=== PATIENT | female | born 1930 | race Caucasian/White ===

== ENCOUNTER 2016-10-25 13:26 | Emergency (ER) | payer OTHER ==
[~2016-10-25] VITALS: Ht 160 cm; Wt 74.5 kg
[~2016-10-25 13:26] MED LIST: ASPIR-LOW81 M1 PO; CENTRUM SILVER1 EACH PO; DIOVAN HCT 11 TABLET PO; DIOVAN HCT 81 TABLET PO; LUMIGAN 0.50 DROP/2.; METFORMIN HCL500 MG PO; METOPROLOL SUCC25 MG PO; SULFA
[2016-10-25] MEDS ORDERED: LATANOPROST2.5 ML BOTH EYES (14:25)
[2016-10-25] MEDS ORDERED: LOSARTAN POTAS100 MG PO (14:25)
[2016-10-25 14:58] LABS: HEMATOCRIT 32.7 % (36.0-46.0); MCH 30.8 PG (29.0-34.0); MCV 93.2 FL (83-99); MEAN PLAT.VOLUME 9.4 uM^3 (9.5-12.4); PLATELET COUNT 180 K/uL (156-360); RBC DIS.WIDTH-CV 12.6 % (11.8-14.6); RED BLOOD COUNT 3.51 M/uL (3.80-5.20); WHITE BLOOD COUNT 11.6 K/uL (4.1-10.2)
[2016-10-25 15:05] LABS: CHLORIDE 106 mEq/L (99-109); POTASSIUM 4.2 mEq/L (3.7-5.4)
[2016-10-25 15:06] LABS: SODIUM 140 mEq/L (136-147)
[2016-10-25 15:07] LABS: GLUCOSE 95 mg/dL (70-99)
[2016-10-25 15:09] LABS: ANION GAP 9 MEQ/L (2-14)
[2016-10-25 15:11] LABS: GFR ESTIMATE (CALCULATED) > 59 mL/min/
[2016-10-25 15:12] LABS: UREA NITROGEN (BUN) 21 mg/dL (9-23)
[2016-10-25] MEDS ORDERED: HYDROCHLOROTHIA25 MG PO (16:35)
[2016-10-25 18:07] VITALS: BP 142/48
== END 2016-10-25 18:08 | disposition home or self-care (01) ==
LOC: EME → EDBD 13:26 → EME 18:08
PROVIDERS: Emergency Medicine
PROC: 0HQ1XZZ Repair Face Skin, External Approach (ICD-10-PCS; principal; 2016-10-25)
PROC: 2W39X1Z Immobilization of Left Upper Extremity using Splint (ICD-10-PCS; 2016-10-25)
PROC: 3E0234Z Introduction of Serum, Toxoid and Vaccine into Muscle, Percutaneous Approach (ICD-10-PCS; 2016-10-25)
DX: S09.8XXA Other specified injuries of head, initial encounter (principal); S01.112A Laceration without foreign body of left eyelid and periocular area, initial encounter; S42.415A Nondisplaced simple supracondylar fracture without intercondylar fracture of left humerus, initial encounter for closed fracture; W01.0XXA Fall on same level from slipping, tripping and stumbling without subsequent striking against object, initial encounter; Y92.009 Unspecified place in unspecified non-institutional (private) residence as the place of occurrence of the external cause; R60.0 Localized edema; Z23 Encounter for immunization; I10 Essential (primary) hypertension
CPT/HCPCS: 70450; 71020; 73080; 80048; 85027; 99281; 99285

== ENCOUNTER 2016-10-26 09:58 | Emergency (ER) | payer OTHER ==
[~2016-10-26] VITALS: Ht 160 cm; Wt 74.5 kg
[~2016-10-26 09:58] MED LIST changes: +HYDROCHLOROTHIA25 MG PO; +LATANOPROST2.5 ML BOTH EYES; +LOSARTAN POTAS100 MG PO
[2016-10-26 12:47] VITALS: BP 177/78
== END 2016-10-26 12:50 | disposition home or self-care (01) ==
LOC: EME 09:58
DX: S92.912A Unspecified fracture of left toe(s), initial encounter for closed fracture (principal); M79.604 Pain in right leg; M79.605 Pain in left leg; W19.XXXD Unspecified fall, subsequent encounter; E11.9 Type 2 diabetes mellitus without complications; I10 Essential (primary) hypertension; K21.9 Gastro-esophageal reflux disease without esophagitis; Z87.440 Personal history of urinary (tract) infections
CPT/HCPCS: 73502; 73630; 99281; 99284

== ENCOUNTER 2017-10-25 18:02 | Inpatient (IN) | payer OTHER ==
[~2017-10-25] VITALS: Ht 160 cm; Wt 71.0 kg
[2017-10-25 18:53] LABS: HEMATOCRIT 32.1 % (36.0-46.0); MCH 31.6 PG (29.0-34.0); MCHC 34.3 G/DL (30.0-36.0); MCV 92.2 FL (83-99); PLATELET COUNT 349 K/uL (156-360); RBC DIS.WIDTH-CV 12.3 % (11.8-14.6); RBC DIS.WIDTH-SD 41.3 % (39-53); RED BLOOD COUNT 3.48 M/uL (3.80-5.20); WHITE BLOOD COUNT 7.1 K/uL (4.1-10.2)
[2017-10-25 19:00] LABS: CHLORIDE 103 mEq/L (99-109); POTASSIUM 3.6 mEq/L (3.7-5.4); SODIUM 139 mEq/L (136-147)
[2017-10-25 19:02] LABS: GLUCOSE 134 mg/dL (70-99)
[2017-10-25 19:06] LABS: CREATININE 0.6 mg/dL (0.6-1.3); GFR ESTIMATE (CALCULATED) > 59 mL/min/; UREA NITROGEN (BUN) 18 mg/dL (9-23)
[2017-10-25 23:46] LABS: PTT 27.8 SEC (25-37)
[2017-10-26] VITALS (7 sets, daily range): BP systolic 118–167; BP diastolic 54–77
[2017-10-26] MEDS ORDERED: MILK OF MAGN PO (00:56)
[2017-10-26] MEDS ORDERED: BISACODYL SUPP10 MG PR (00:58)
[2017-10-26] MEDS ORDERED: ACETAMINOPHEN325 M1 PO (01:00)
[2017-10-26] MEDS ORDERED: LORAZEPAM0.5 MG PO (01:01)
[2017-10-26] MEDS ORDERED: IBUPROFEN400 MG PO (01:02)
[2017-10-26] MEDS ORDERED: IPRATR-ALBUTEROL3 ML IH (01:05)
[2017-10-26] MEDS ORDERED: CRAN-MAX500 MG PO (01:06)
[2017-10-26] MEDS ORDERED: ZOLOFT25 MG PO (01:31)
[2017-10-26] MEDS ORDERED: TRAZODONE HCL50 MG PO (01:33)
[2017-10-26] MEDS ORDERED: ONCE DAILY1 EACH PO (01:34)
[2017-10-26] MEDS ORDERED: POTASSIUM CHLO10 ME4 PO (01:35)
[2017-10-27 04:33] VITALS: BP 122/53
[2017-10-27 08:01] VITALS: BP 143/66
[2017-10-27 08:01] LABS: HEMOGLOBIN 10.4 G/DL (11.9-15.5); MCV 93.8 FL (83-99)
[2017-10-27 08:38] LABS: CHLORIDE 107 MEQ/L (99-109); CREATININE 0.4 MG/DL (0.6-1.3); GFR ESTIMATE (CALCULATED) > 59 mL/min/; GLUCOSE 110 mg/dL (70-99); POTASSIUM 3.8 MEQ/L (3.7-5.4); SODIUM 141 MEQ/L (136-147); UREA NITROGEN (BUN) 10 mg/dL (9-23)
[2017-10-27 12:03] LABS: CHLORIDE 107 MEQ/L (99-109); CREATININE 0.4 MG/DL (0.6-1.3); GFR ESTIMATE (CALCULATED) > 59 mL/min/; GLUCOSE 113 mg/dL (70-99); POTASSIUM 3.7 MEQ/L (3.7-5.4); SODIUM 141 MEQ/L (136-147); UREA NITROGEN (BUN) 9 mg/dL (9-23)
[2017-10-27 12:17] VITALS: BP 135/64
[2017-10-27 16:01] VITALS: BP 173/74
[2017-10-27 19:47] VITALS: BP 142/65
[2017-10-28] VITALS (8 sets, daily range): BP systolic 114–188; BP diastolic 55–84
[2017-10-28 05:27] LABS: HEMATOCRIT 30.7 % (36.0-46.0); HEMOGLOBIN 10.1 G/DL (11.9-15.5); MCV 94.2 FL (83-99)
[2017-10-29 03:42] VITALS: BP 142/76; BP 178/71
[2017-10-29 09:20] VITALS: BP 120/59
[2017-10-29 11:04] VITALS: BP 129/61
[2017-10-29 16:52] VITALS: BP 143/65
[2017-10-29 20:27] VITALS: BP 130/68
[2017-10-30 00:03] VITALS: BP 140/63
[2017-10-30 05:07] VITALS: BP 137/64
[2017-10-30 07:52] VITALS: BP 140/65
[2017-10-30 11:18] VITALS: BP 110/55
== END 2017-10-30 15:26 | DRG 482 ==
LOC: EME 18:02 → EDOF 23:30 → 3EAST 23:30 → ENRESERV 10-26 00:10 → 3EAST 10-26 00:51
PROVIDERS: Emergency Medicine; Internal Medicine; Orthopaedic Surgery Sports Medicine
PROC: 0QH634Z Insertion of Internal Fixation Device into Right Upper Femur, Percutaneous Approach (ICD-10-PCS; principal; 2017-10-26)
DX: S72.001A Fracture of unspecified part of neck of right femur, initial encounter for closed fracture (principal); I10 Essential (primary) hypertension; G30.9 Alzheimer's disease, unspecified; F02.80 Dementia in other diseases classified elsewhere, unspecified severity, without behavioral disturbance, psychotic disturbance, mood disturbance, and anxiety; E11.9 Type 2 diabetes mellitus without complications; M85.80 Other specified disorders of bone density and structure, unspecified site; W18.30XA Fall on same level, unspecified, initial encounter; K21.9 Gastro-esophageal reflux disease without esophagitis; Z88.2 Allergy status to sulfonamides
CPT/HCPCS: 71045; 72192; 73501; 73522; 76000; 80048; 80048 91; 82948; 85014; 85018; 85027; 85610; 85730; 86850; 86900; 86901; 93005; 94799; 99281; 99285; C1713; J0131; J0690; J1100; J1650; J1815; J2270; J2405; J3010; J3480; J7030